=== PATIENT | female | born 1990 | race Asian ===

== ENCOUNTER 2020-07-18 13:11 | Emergency (ER) | payer OTHER ==
[~2020-07-18] VITALS: Ht 157.5 cm; Wt 68.0 kg
[2020-07-18 13:20] VITALS: TEMP 97.3
[2020-07-18 13:45] VITALS: BP 128/80
== END 2020-07-18 13:45 | disposition home or self-care (01) ==
LOC: ED 13:11
DX: M26.622 Arthralgia of left temporomandibular joint (principal)
CPT/HCPCS: 99281; J1885

== ENCOUNTER 2022-01-03 14:03 | Emergency (ER) | payer OTHER ==
[~2022-01-03] VITALS: Ht 157.5 cm; Wt 76.2 kg
[2022-01-03 14:12] VITALS: BP 103/54; TEMP 97
== END 2022-01-03 15:46 | disposition home or self-care (01) ==
LOC: ED 14:03
DX: N39.0 Urinary tract infection, site not specified (principal); Z20.822 Contact with and (suspected) exposure to COVID-19
CPT/HCPCS: 81000; 87077; 87086; 87088; 87186; 87502; 87635; 99282; U0003

== ENCOUNTER 2022-02-10 17:28 | Emergency (ER) | payer OTHER ==
[~2022-02-10] VITALS: Ht 157.5 cm; Wt 76.2 kg
[2022-02-10 18:34] VITALS: BP 136/79; TEMP 97.6
== END 2022-02-10 18:34 | disposition home or self-care (01) ==
LOC: ED 17:28
DX: K02.9 Dental caries, unspecified (principal); K04.7 Periapical abscess without sinus; R22.0 Localized swelling, mass and lump, head
CPT/HCPCS: 99282